=== PATIENT | female | born 1990 | race Caucasian/White ===

== ENCOUNTER 2016-08-27 23:00 | Emergency (ER) | payer BC, OTHER ==
[2016-08-27] MEDS ORDERED: AMOXICILLIN 500 MG CAPSULE PO ONE (23:16)
--- NOTE | 2016-08-27 23:24 | PDOC ---
Sore Throat/Dental Pain HPI - General Chief Complaint: Nasal/Mouth Problem /Injury Stated Complaint: Right Lower Molar Tooth Pain Date Seen by Provider: 08/27/16 Time Seen by Provider: 23:18 Source: POSITIVE: Patient Exam Limitations: POSITIVE: No limitations Nurse's Notes Reviewed & Considered: Yes - History of Present Illness Initial Comments: Patient comes in today chief complaint of jaw pain. Patient comes in with jaw pain that initially began as pain that seemed to radiate from her right ear now it is more localized in the right lower jaw. It is beginning to radiate down her right neck. She denies any fever chills sweats, nausea vomiting or diarrhea , shortness of breath, chest pain, no cough. Location: Dental (Lower) Timing: REPORTS: Gradual Duration: >24 hours Severity: Moderate Quality: REPORTS: Aching, "Pain", Throbbing Context: REPORTS: Other (Dental caries) Associated Symptoms: REPORTS: Toothache Similar Symptoms Previously: No Recently seen/treated/hospitalized: No Any Prior Injuries Related to Current Complaint?: No - Patient Home Medications Home Medications: Home Medications NK [No Home Medications Reported] 06/20/14 Fluticasone Propionate [Flonase Allergy Relief] 2 spr LIDIA DAILY #1 spr Sertraline HCl 50 mg PO DAILY #30 tab 04/17/16 - Patient Allergies Allergies/Adverse Reactions: Allergies Allergy/AdvReac Type Severity Reaction Status Date / Time Sulfa (Sulfonamide Allergy HIVES Unverified 04/17/16 10:08 Antibiotics) atomoxetine HCl AdvReac Chest Unverified 04/17/16 10:08 [From Strattera] Pain, Increased irritability Past Medical History - heen HEENT History: Denies History Cardiovascular History: Denies History Respiratory History: Denies History Gastrointestinal History: Other (please comment) Additional Gastrointestinal History: inflammatory bowel syndrome Genitourinary History: Denies History Endocrine History: Denies History Musculoskeletal History: Denies History Neurological History: Denies History Blood Disorders: Denies History Psychiatric History: ADD History of Sexually Transmitted Diseases: No Cancer History: Denies History History of MDRO: No History of Other Communicable Diseases: No Alcohol Use: Occasionally Substance Use Type: None Previous Surgical History: Yes Type / Date of Surgery: . GALLBLADDER Anesthesia Reactions: No Malignant Hyperthermia: No Significant Family History: No pertinent family hx ROS - Limitations ROS Limitations: No Limitations Constitution: REPORTS: Denies Symptoms Cardiovascular: REPORTS: Denies Cardiac Symptoms Respiratory: REPORTS: Denies Resp Symptoms Neurological: REPORTS: Denies Neuro Symptoms Gastrointestinal: REPORTS: Denies GI Symptoms Endocrine: REPORTS: Denies Symptoms Musculoskeletal: REPORTS: Denies MS Symptoms Genitourinary: REPORTS: Denies Symptoms Eyes: REPORTS: Denies Symptoms ENT: REPORTS: Dental Pain Skin: REPORTS: Denies Skin Symptoms Lympathic: REPORTS: Denies Lympathic Symptoms Immunologic: POSITIVE: Denies Symptoms Psychiatric: POSITIVE: Denies Psych Symptoms Sore Throat/Dental Pain Exam - General Appearance General Appearance: REPORTS: Alert, Cooperative, No Evidence of Trauma, Moderate Distress - HEENT Head / Face: POSITIVE: Atraumatic, Normal Inspection, No Facial Swelling Eyes: POSITIVE: Inspection Normal, PERRL, EOM's Intact, Eyelids Uninjured, Conjunctivae Uninjured, Sclera Normal Ears: POSITIVE: Ears Normal Inspection, TM Normal Inspection, Auricle Normal, External Canal Normal Nose: POSITIVE: Inspection Normal, No Apparent Trauma, Nares Normal, No CSF Leak Oropharynx: POSITIVE: External Inspection Nml, Pharynx Inspect. Nml, Airway Intact, Voice Normal, Moist Mucous Membranes, No Oral Injury, Lips Normal, Gums Normal, No Drooling, No Thrush Neck: POSITIVE: Supple, Normal Inspection Dental: POSITIVE: Dental Caries - Respiratory Respiratory: REPORTS: No Respiratory Distress - Abdomen Abdomen: Denies Tenderness: (All Quadrants) - Extremities Extremity: Non-Tender: (All Extremities), Normal ROM: (All Extremities), Normal Inspection: (All Extremities) - Skin Skin: REPORTS: Intact, Normal For Race, Warm, Dry, No Rash - Neurological / Psychological Neurological: POSITIVE: Affect Apporpriate Sore Throat/Dental Progress - Patient's Progress Status: POSITIVE: Improved MDM / ED Course: Patient was examined, and received oral amoxicillin Becker is dispensed for home. She receives a prescription for amoxicillin 1000 mg by mouth 3 times a day for 14 days, a prescription for Becker No. 20 instructions to follow-up with the dentist. Assessment: Dental caries with odontalgia. - Consult Counseled: POSITIVE: Patient, RE: DX, RE: Need for F/U Patient Care Time - Estimated PCT Patient Care Time (In Minutes): 10 Vital Signs - VS Reviewed Vital Signs Reviewed: Yes Discharge Clinical Impression: Dental caries Discharge Disposition: Discharged to Home Condition: Stable Patient Instructions Given at Discharge: Toothache (ED)
[2016-08-27] MEDS ORDERED: HYDROcodone-APAP 5 MG -325 MG TABLET PO SCH (23:30)
[2016-08-28 01:14] VITALS: RESP 16; TEMP 98.1
== END 2016-08-27 23:36 | disposition home or self-care (01) ==
LOC: ER 23:00
DX: K02.9 Dental caries, unspecified (principal); K08.89 Other specified disorders of teeth and supporting structures
CPT/HCPCS: 99282; 99283

== ENCOUNTER → 2016-11-09 | Outpatient (CLI) | payer BC, OTHER ==
--- NOTE | 2016-11-09 20:31 | DI ---
LEFT KNEE, 11/09/2016 3:29 PM: Clinical History: Left knee pain. Previous Exam: None at this facility. 4 views are submitted. The AP and tunnel projections are weight bearing views. There is no fracture o r dislocation. A moderate joint effusion is present. There is a very subtle narrowing of the medial c ompartment, and there is suggestion of mild subluxation of the patella laterally raising the possibil ity of laxity of the medial patellofemoral ligament in the medial retinaculum. Reading: Moderate joint effusion. Mild narrowing of the medial compartment is noted and there may be very mild lateral subluxation of the patella.
== END ==
LOC: ORTHO 15:40
PROVIDERS: ATTEND Orthopaedic Surgery
DX: M25.562 Pain in left knee (principal); M25.462 Effusion, left knee; Y93.A1 Activity, exercise machines primarily for cardiorespiratory conditioning
CPT/HCPCS: 73564